=== PATIENT | male | born 1975 | race African-American/Black ===

== ENCOUNTER 2019-02-03 17:09 | Emergency (ER) | payer OTHER ==
[2019-02-03 17:22] VITALS: BP 121/84; PULSE 74; TEMP 98.1; BMI 24.4
[2019-02-03] MEDS ORDERED: IBUPROFEN 600 MG TABLET (FP) PO ONE ×2 (17:59→18:02)
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
== END 2019-02-03 18:13 | disposition home or self-care (01) ==
LOC: JERFT 17:09
DX: S39.82XA Other specified injuries of lower back, initial encounter (principal); M54.5 Low back pain; V43.52XA Car driver injured in collision with other type car in traffic accident, initial encounter; Y92.414 Local residential or business street as the place of occurrence of the external cause; Y93.89 Activity, other specified; Y99.8 Other external cause status
CPT/HCPCS: 99281-25